=== PATIENT | female | born 1935 | race Caucasian/White ===

== ENCOUNTER 2017-05-25 09:52 | Emergency (ER) | payer MEDICARE, MEDICAID ==
[~2017-05-25] VITALS: Ht 152.4 cm; Wt 96.8 kg
[~2017-05-25 09:52] MED LIST: ASA325 PO; CITA20TA PO; DIT5 PO; LISI1TAB11 PO; PEG2480S PO; TYL325 PO
[2017-05-25 10:02] VITALS: BP 146/86; PULSE 70; RESP 16; O2SAT 96
--- NOTE | 2017-05-25 10:46 | ED.REPORT ---
HPI-General Illness Date of Service May 25, 2017 ED Provider: Matt Nugent MD The patient is an 81 year old female with history of prior TIA and dementia, who presents to the emergency department complaining of dizziness that began yesterday around 1500. The patient states she got up from a chair, felt dizzy, her vision was blurry, and she was very unsteady. She also developed a headache and felt nauseous the rest of the night. This morning she woke up and her symptoms were improved but still present. Her symptoms are exacerbated with standing or change in position. At this time she is feeling better. She denies unilateral weakness, numbness, syncope, facial droop, slurred speech or confusion. No recent falls or head injuries. She is not on blood thinners. She denies bloody or tarry stools. Nursing Notes Stated Complaint: DIZZY/BLURRED VISION/SOB/SENT BY [facility] Chief Complaint: Neuro Symptoms/ Deficits Nursing Notes Reviewed: Yes Allergies: Coded Allergies: artichoke (Verified Allergy, Unknown, 10/11/13) codeine (Verified Allergy, Unknown, 10/11/13) Scheduled Aspirin-Expunged Drug, Do Not Renew! (Aspirin-Expunged Drug, Do Not Renew!) 325 Mg Tablet 325 MG PO DAILY Citalopram-Expunged Drug, Do Not Renew! (Citalopram-Expunged Drug, Do Not Renew! ) 20 Mg Tablet 20 MG PO DAILY Lisin/HCTZ-Expunged, Do Not Renew! (Lisin/HCTZ 20/25-Expunged, Do Not Renew!) 1 Tab Tablet 1 TAB PO DAILY Oxybutynin-Expunged Drug, Do Not Renew! (Ditropan-Expunged Drug, Do Not Renew!) 5 Mg Tablet 5 MG PO TID MAY CAUSE DROWSINESS, NO ALCOHOL Peg 3350-Bowel 2,Two Part Prep (Suclear Bowel Prep Kit) 2,480 Ml Soln.rc.sq 2, 480 ML PO UD Scheduled PRN Acetaminphen-Expunged Drug, Do Not Renew! (Acetaminphen-Expunged Drug, Do Not Renew!) 325 Mg Tablet 650 MG PO Q6H PRN PRN General Time Seen by MD: 10:17 Chief Complaint Dizziness Hx Obtained From: Patient, Other family... Arrived By: Wheelchair Sudden in Onset?: Yes Onset Occurred: Yesterday Symptom Duration: Since onset Location: : Head Quality: Painful Severity: Current: Mild Severity: Maximum: Severe Associated with: Reports: Headache, Nausea Additional Notes: +blurred vision, shortness of breath Pertinent Negative: Pt denies other symptoms Recent Healthcare: No recent hospitalization, Recent doctor visit Similar Sx Previous: Yes Past Medical History Past Medical History Hx of TIA Dementia Arthritis Past Surgical History Reports: Appendectomy Family History Noncontributory Smoking History Unknown if Ever Smoker Social History Other Social History: Local resident Ambulatory Status Independent Review of Systems Full Review of Systems Eyes: Reports: Blurred bilateral Respiratory: Reports: Shortness of breath GI: Reports: Nausea, Denies: Bloody/tarry stool, Hematochezia, Melena Neurologic: Reports: Dizziness, Headache, Problem walking, Vision change, Denies: Change LOC, Confusion, Focal weakness, Lightheaded, Numbness, Slurred speech, Syncope Complete sys rev & neg: except as marked. Physical Exam Vital Signs Vital Signs Date Time Temp Pulse Resp B/P Pulse Ox O2 Delivery O2 Flow Rate FiO2 05/25/17 12:01 37.0 64 16 130/72 98 Room Air 05/25/17 11:41 64 16 130/72 98 Room Air 05/25/17 10:02 37.0 70 16 146/86 96 Room Air Initial VS: Reviewed Respiratory: Breath sounds normal, Clear to auscultation, No respiratory distress Cardiovascular: Regular rate & rhythm, Heart sounds normal, Intact distal pulses Abdomen / GI: Soft, Non-tender, No guarding, No rebound, No distention Lymphatic: No lymphadenopathy Extremities: Vascular intact, Neuro intact, No swelling, No tenderness Skin: Warm, Dry, No cyanosis Psychiatric: Mood/affect normal, Behavior normal, Normal thought content General/Constitutional: Awake, Alert, No acute distress, Cooperative Head / Eyes: Atraumatic, Normocephalic, PERRL, EOMI ENT: Atraumatic, Airway patent Mouth: Positive: Mucous membranes dry Neck: Atraumatic, Supple, No meningismus, Full range of motion, No adenopathy, No swelling, Non-tender, No midline vertebral tend Neurologic: Oriented X3, Speech NL, No motor deficits, No sensory deficits, CN II - XII intact, Cerebellar NL, Memory NL, Gait NL No facial droop. Managing Consultant Clinical Professor strength is 5/5 bilaterally. No pronator drift. No dysmetria with finger to nose testing. Strength is 5/5 to both lower extremities. Negative Romberg test. She is able to balance with her eyes closed. Normal gait. She is able to ambulate in a straight line. Interpretation & Diagnostics Lab Results Interpretation Result Diagram: 05/25/17 1045 05/25/17 1045 Test 05/25/17 10:45 White Blood Count 8.4th/mm3 (3.8-10.1) Red Blood Count 5.23mil/mm3 (3.90-5.20) Hemoglobin 14.8g/dL (12.0-15.6) Hematocrit 44.8% (35.0-46.0) Mean Corpuscular Volume 85.7fL (81-100) Mean Corpuscular Hemoglobin 28.3pg (27.0-35.0) Mean Corpuscular Hemoglobin Concent 33.0% (32.0-37.0) Red Cell Distribution Width 14.0% (12.3-15.4) Platelet Count 162bil/L (150-400) Neutrophils (%) (Auto) 65.3% (40-74) Lymphocytes (%) (Auto) 27.2% (14-46) Monocytes (%) (Auto) 5.7% (4-12) Eosinophils (%) (Auto) 1.3% (0-5) Basophils (%) (Auto) 0.4% (0-3) Sodium Level 139mEq/L (134-144) Potassium Level 4.2mEq/L (3.5-5.2) Chloride Level 103mEq/L (97-108) Carbon Dioxide Level 20mmol/L (18-29) Blood Urea Nitrogen 18mg/dL (8-27) Creatinine 0.76mg/dL (0.57-1.00) Estimat Glomerular Filtration Rate 105mL/min (>59) Glucose Level 101mg/dL (60-99) Calcium Level 9.2mg/dL (8.5-10.1) Total Bilirubin 0.4mg/dL (0.0-1.2) Aspartate Amino Transf (AST/SGOT) 17U/L (0-50) Alanine Aminotransferase (ALT/SGPT) 14U/L (0-32) Alkaline Phosphatase 70U/L (25-165) Troponin T 0.010ug/L (0.0-0.011) Total Protein 6.6g/dL (6.4-8.4) Albumin 3.9g/dL (3.4-5.0) ECG Interpretation ECG Interpretation: Sinus rhythm with a rate of [address] segment changes T wave flattening throughout Low voltage throughout No prior available for comparison Time: 10:40 Interpreted by: ED physician Re-Eval/Medical Decision Med Decision/Clinical Course The patient is an 81 year old female with history of prior TIA and dementia, who presents to the emergency department complaining of dizziness that began yesterday around 1500. The patient states she got up from a chair, felt dizzy, her vision was blurry, and she was very unsteady. She also developed a headache and felt nauseous the rest of the night. This morning she woke up and her symptoms were improved but still present. Her symptoms are exacerbated with standing or change in position. At this time she is feeling better. She denies unilateral weakness, numbness, syncope, facial droop, slurred speech or confusion. No recent falls or head injuries. She is not on blood thinners. She denies bloody or tarry stools. Here in the emergency Department the patient is afebrile, hemodynamically stable and in no apparent distress. EKG was obtained and interpreted by myself as documented above. LABS: CBC unremarkable, CMP unremarkable, troponin negative Patient's lightheadedness is reproducible with standing and she has positive orthostatic changes. She reports dramatic improvement after receiving 1 L of normal saline. EKG demonstrates no evidence of acute ischemia or arrhythmia and initial screening troponin is negative. Laboratory studies are reassuring and she has no history of GI bleeding or evidence suggestive thereof. Her overall presentation seems most consistent with dehydration. There is no evidence of lateralizing neurologic deficit or head trauma. My suggestion for acute ischemic stroke/intracranial hemorrhage is very low. I do not feel that neuroimaging studies are indicated. The patient reports she is feeling better and would like to go home. I feel that this is reasonable. She will follow up closely with her primary care physician. Prior to discharge follow-up and return precautions were reviewed in detail with the patient who verbalized understanding and agreement with the plan. The patient was discharged in stable condition. Source of Hx: Old records, Family Time of Eval: 11:54 Re-Evaluation/Progress Note: Rechecked the patient. Discussed plan for discharge. All questions were addressed. Counseled Regarding: Diagnosis, Lab results, Need for follow-up, When/why to return to ED Discharge & Departure Primary Impression: Lightheaded Additional Impressions: Dehydration Orthostatic lightheadedness Disposition: Home Discharge Condition All VS Reviewed: Yes Condition: Stable Additional Instructions: Thank you for seeking care at the emergency room. It is difficult for us to make definitive diagnoses in the ED but we believe that you are experiencing dehydration. Our primary goal today in the ED was to evaluate you for any life-threatening conditions. Your evaluation was reassuring. You should follow-up with your primary doctor in the next 1-3 days. You should return to the ED immediately if you develop recurrent symptoms, fevers, vomiting, cough, shortness of breath, chest pain, lightheadedness, weakness or any other concerning signs or symptoms. Thank you for letting us partake in your care today. Referrals: Serafin Melgoza DO (PCP) [facility] Attestation Portions of this note were transcribed by Ania Emerson. I, Dr. Nugent personally performed the history, physical exam and medical decision-making; I reviewed and confirmed the accuracy of the information in the transcribed note. Signed by: Ena Rudd, 05/25/2017 at 1215. copies to: Serafin Melgoza Beck O MD May 25, 2017 10:46 Ania Emerson May 25, 2017 10:51
[2017-05-25 10:55] LABS: BASOPHILS % (AUTO) 0.4 % (0-3); EOSINOPHILS % (AUTO) 1.3 % (0-5); MONOCYTES % (AUTO) 5.7 % (4-12); Mean Corpuscular Hemoglobin 28.3 pg (27.0-35.0); Mean Corpuscular Volume 85.7 fL (81-100); NEUTROPHILS % (AUTO) 65.3 % (40-74); Platelet Count 162 bil/L (150-400)
[2017-05-25] MEDS ORDERED: 0.9% Sodium Chloride 1,000 ML IV ONE (11:05)
[2017-05-25 11:19] LABS: TROPONIN T 0.01 ug/L (0.0-0.011)
[2017-05-25 11:41] VITALS: BP 130/72; PULSE 64; RESP 16; O2SAT 98
[2017-05-25 12:01] VITALS: BP 130/72; PULSE 64; RESP 16; O2SAT 98
== END 2017-05-25 12:01 | disposition home or self-care (01) ==
LOC: SED 09:52
DX: E86.0 Dehydration (principal); R42 Dizziness and giddiness; R06.02 Shortness of breath; F03.90 Unspecified dementia, unspecified severity, without behavioral disturbance, psychotic disturbance, mood disturbance, and anxiety; Z86.73 Personal history of transient ischemic attack (TIA), and cerebral infarction without residual deficits; Z88.5 Allergy status to narcotic agent; Z88.8 Allergy status to other drugs, medicaments and biological substances
CPT/HCPCS: 36415; 80053; 82948; 84484; 85025; 93005; 96360; 99285; J7030